=== PATIENT | male | born 1965 | race Caucasian/White ===

== ENCOUNTER 2024-07-24 16:57 | Emergency (ER) | payer OTHER, SELFPAY ==
[2024-07-24 17:01] VITALS: BP 129/83
[2024-07-24 17:22] LABS: % Eosinophils 4.6 % (0-6); % Immature Granulocytes 0.4 % (0-0.5); % Lymphocytes 23.7 % (20.5-51.1); % Monocytes 6.8 % (1.7-9.3); % Neutrophils 63.5 % (42.2-75.2); Absolute Basophils 0.1 10^3/uL (0-0.2); Absolute Eosinophils 0.4 10^3/uL (0-0.7); Absolute Lymphocytes 2.1 10^3/uL (1.2-3.4); Absolute Monocytes 0.6 10^3/uL (0.1-0.6); Absolute Neutrophils 5.7 10^3/uL (1.4-6.5); Hematocrit 44.2 % (39.0-52.0); Hemoglobin 14.9 g/dL (13.0-18.0); Mean Corp Hgb Conc. 33.7 g/dL (33.0-37.0); Mean Corpuscular Hgb 29.2 pg (27.0-31.0); Mean Corpuscular Volume 86.5 fL (80.0-94.0); Mean Platelet Volume 10.5 fL (7.4-10.4); Nucleated Red Blood Cells % 0 % (-); Platelet Count 243 10^3/uL (130-400); Red Blood Cell Count 5.11 10^6/uL (4.70-6.10); Red Cell Dist. Width 12.7 % (11.5-14.5); White Blood Cell Count 8.9 10^3/uL (4.8-10.8)
[2024-07-24 17:34] LABS: ALT (SGPT) 29 U/L (0-50); AST (SGOT) 24 U/L (17-59); Albumin 4.3 g/dl (3.5-5.0); Alkaline Phosphatase 40 U/L (38-126); Blood Urea Nitrogen 21 mg/dl (9-20); Calcium 9.3 mg/dl (8.4-10.2); Carbon Dioxide 24 mmol/L (22-30); Chloride 104 mmol/L (98-107); Glucose 108 mg/dl (70-99); Potassium 4.3 mmol/L (3.5-5.1); Sodium 141 mmol/L (135-145); Total Bilirubin 0.4 mg/dl (0.2-1.3); Total Protein 7.2 g/dl (6.3-8.2); eGFR > 60.00
[2024-07-24 17:40] LABS: COVID-19 Antigen Negative (Negative)
[2024-07-24 20:00] VITALS: BP 125/84
--- NOTE | 2024-07-24 21:30 | ED.GENMED ---
History of Present Illness
General
Chief Complaint: Headache
Source: patient
Exam Limitations: none
Time Seen by Provider: 07/24/24 19:57
Nursing documentation reviewed up to this point in time: agreed with
History of Present Illness
History of Present Illness:
This is a 58-year-old gentleman who has history of well-controlled asthma, obstructive sleep apnea who complains of at least 2-week history of intermittent left-sided headache that only occurs with exertion most noted with sexual intercourse.
Headache is generally left occipital to left frontal region, moderate in intensity but resolves promptly within 5 minutes and without other associated symptoms. He does note occasional mild discomfort left posterior neck but no congestion, no sore
throat, no fever no chills, no vision difficulty, no dizziness nor lightheadedness.
Over the past 2 to 3 months he has had pulsatile tinnitus of his left ear, most noted at nighttime. He has had occasional achiness of his left ear for the past 2 weeks.
He denies rash. No history of similar episodes of headaches. Currently comfortable and pain-free.
He does have history of left facial numbness, questionable droop [address] of the head and reported unremarkable neurology evaluation at that time.
Past History
Past History
ED Past Medical History: Asthma and Other (Obstructive sleep apnea)
ED Past Surgical History: Appendectomy
Social History
Tobacco: Non-smoker
Alcohol: None
Drug: None
Personal:
Living: with family
Employment: Employed
Family History
Family History: Other (Noncontributory)
Phy Exam
Physical Exam
Physical Exam:
GENERAL: Alert , in no apparent distress
EYE: pupils equal and reactive. Extraocular muscles intact anicteric
NECK: Supple, nontender, no meningismus, no significant adenopathy.
ENT: posterior pharynx is clear, oral mucosa is moist. TM clear b/l, nares have mildly boggy pale blue turbinates without rhinorrhea.
CARDIAC: Regular rate and rhythm. no murmur.
LUNGS: Clear breath sounds bilaterally, no acute respiratory distress, no wheezes/rales/rhonchi
ABDOMEN: Soft, nondistended, without focal tenderness, no r/g, no cvat. normoactive BS.
NEUROLOGICAL: Alert and oriented x3, no focal neuro deficits. Gait is vaughan and steady.
SKIN: Warm and dry, normal color, skin intact. No rash.
MUSCULOSKELETAL: No C/C/E. peripheral pulses are full and equal b/l. No palpable tenderness.
PSYCH: Normal and appropriate interaction.
Course
Orders/Labs/Results
Orders:
Orders
07/24/24 17:13
CBC/With Diff [Complete Blood Count/With Diff] Urgent
CMP [Comprehensive Metabolic Panel] Urgent
COVID-19 Antigen Urgent
Source: Nasal Swab
Influenza A+B Rapid Molecular Urgent
ELENA Source: Nasal Swab
Specimen Description:
07/24/24 20:46
CT Head W/o Iv Contrast Urgent
Comment:
Reason For Exam: intermittent h/a w exertion
Abnormal Lab Results
07/24/24
17:13
MPV 10.5 H fL
(7.4-10.4)
BUN 21 H mg/dl
(9-20)
Glucose 108 H mg/dl
(70-99)
07/24/24 17:13
07/24/24 17:13
Vital Signs
Initial and Last Documented VS:
Initial Vital Signs
Temp Pulse Resp BP Pulse Ox
97.9 F 79 18 129/83 98
07/24/24 17:01 07/24/24 17:01 07/24/24 17:01 07/24/24 17:01 07/24/24 17:01
Last Documented Vital Signs
Temp Pulse Resp BP Pulse Ox
97.9 F 72 20 105/73 100
07/24/24 17:01 07/24/24 21:52 07/24/24 21:52 07/24/24 21:52 07/24/24 21:52
MDM/Problems Addressed
Differential Diagnosis Includes:
Concern for intermittent postcoital headache over the past 2 weeks, concern for tension type headache, other consideration is subarachnoid hemorrhage however reassuring that headache is very brief in nature.
3-month history of left ear tinnitus I suspect is a separate issue. No associated dizziness nor sense of hearing loss.
He does have mild allergic rhinitis on exam but no evidence of otitis media.
Will check CT of the head.
If unremarkable would recommend trial of NSAID for suspected musculoskeletal/tension headache and recommend follow-up with PCP regarding headache and follow-up with ENT regarding tinnitus.
*Radiology
Radiology exam reviewed: radiology read reviewed (CT of the head is unremarkable)
*Pulse Oximetry
Patient hypoxic: no
*Critical Care Note
Total Time (30-74mins, 75-104mins- exclusive of procedures): Not Applicable
Update Note
Update Note:
07/24/2024 2238 PM
Patient resting comfortably. No return of headache.
CT of the head is unremarkable.
I suspect an element of muscle tension headache and recommend trial of diclofenac twice daily along with staying well-hydrated on a daily basis.
Recommend prompt follow-up with PCP for recheck.
As far as ongoing tenderness over the past 3 months, as above, recommend he stay well-hydrated and follow-up with PCP, consider ENT evaluation as well.
ED Attending Note
-
Portions of this chart may have been created with voice recognition software.� Occasional wrong word or��sound alike� substitutions may have occurred due to the inherent limitations of voice recognition software.
Discharge Plan
Departure
Patient Disposition: Home (Routine Discharge)
Date of Disposition: 07/24/24
Time of Disposition: 22:34
Patient with high blood pressure during this ER visit?: No
Condition: Good
Discharge Problem:
Primary exertional headache
Instructions: Tinnitus (ringing in the ears), Headache, Adult (DC)
Prescriptions:
New
diclofenac sodium 75 mg tablet,delayed release (DR/EC)
75 mg PO BID PRN (Reason: pain) Qty: 30 0RF
No Action
aspirin 81 MG tablet,delayed release (DR/EC)
81 mg PO DAILY
Patient Comments:
took 2 today
albuterol sulfate 18 GM HFA aerosol inhaler
1 - 2 puff IH Q4HPRN PRN (Reason: spring allergies)
Flovent
1 puff inhalation DAILYPRN PRN (Reason: spring allergies)
doxycycline hyclate 100 mg capsule
100 mg PO BID Qty: 42 0RF
Referrals:
Laly Damian PA-C [Family Provider] - Call in 1-3 days for appt
Interventions
Interventions:
ED- Fall Risk Assessment Last Done: 07/24/24 19:45
ED- Neurological Assessment Last Done: 07/24/24 19:45
Discharge Date and Time
Print Language: SWISS
[2024-07-24 21:52] VITALS: BP 105/73
== END 2024-07-24 22:37 | disposition home or self-care (01) ==
LOC: EMR 16:57
PROVIDERS: Student in an Organized Health Care Education/Training Program; EMERGENCY PHYSICIAN Emergency Medicine; FAMILY PHYSICIAN Physician Assistant Medical
DX: G44.84 Primary exertional headache (principal); M54.2 Cervicalgia; H92.02 Otalgia, left ear; J30.9 Allergic rhinitis, unspecified; Z11.52 Encounter for screening for COVID-19; G47.33 Obstructive sleep apnea (adult) (pediatric); J45.909 Unspecified asthma, uncomplicated; Z88.8 Allergy status to other drugs, medicaments and biological substances; Z91.013 Allergy to seafood
CPT/HCPCS: 99284; 70450; 80053; 85025; 87502; 87811

== ENCOUNTER → 2024-09-01 16:01 | Outpatient (REF) | payer OTHER, SELFPAY | LOC: MRI 3T 16:01 | PROVIDERS: ATTENDING PHYSICIAN Internal Medicine; FAMILY PHYSICIAN Physician Assistant Medical | DX: G44.82 Headache associated with sexual activity (principal) | CPT/HCPCS: 70546; A9585 ==

== ENCOUNTER 2025-10-08 06:18 | Day surgery (SDC) | payer BC, SELFPAY | END 2025-10-08 09:16 | disposition home or self-care (01) | LOC: GI 06:18 | PROVIDERS: ATTENDING PHYSICIAN Internal Medicine Gastroenterology | DX: Z12.11 Encounter for screening for malignant neoplasm of colon (principal); R19.5 Other fecal abnormalities; K64.8 Other hemorrhoids; D12.0 Benign neoplasm of cecum | CPT/HCPCS: 45385; 88305 ==